=== PATIENT | female | born 1985 | race American Indian/Alaskan Native ===

== ENCOUNTER 2017-01-19 17:35 | Emergency (ER) | payer OTHER ==
[2017-01-19 17:42] VITALS: BP 127/75; PULSE 114; TEMP 98.9; O2SAT 100; BMI 26.4
[2017-01-19 17:45] VITALS: RESP 16
--- NOTE | 2017-01-19 18:27 | ED PDOC ---
HPI: CCC, URI, Sore Throat Time Seen by Provider: 01/19/17 17:46 Chief Complaint (Nursing): Cough, Cold, Congestion Chief Complaint (Provider): Cough History Per: Patient Additional Complaint(s): 31 yo female, PMH of asthma, presents to ED with complaints of nasal congestion , cough and tactile fever, worse at night x 2 days now. Past Medical History Reviewed: Nursing Documentation, Vital Signs Vital Signs: Last Vital Signs Temp 98.9 F 01/19/17 17:41 Pulse 114 H 01/19/17 17:41 Resp 16 01/19/17 17:41 BP 127/75 01/19/17 17:41 Pulse Ox 100 01/19/17 17:41 - Medical History PMH: No Chronic Diseases - Surgical History Surgical History: No Surg Hx - Family History Family History: States: Unknown Family Hx - Social History Current smoker - smoking cessation education provided: No Alcohol: None Drugs: Denies - Home Medications Home Medications: Ambulatory Orders Medication Instructions Recorded Ibuprofen [Motrin] 400 mg PO Q6 #30 tab 04/18/16 Azithromycin [Zithromax] 500 mg PO DAILY #6 tab 01/19/17 Methylprednisolone [Medrol Dose 4 mg PO DAILY #21 mg 01/19/17 Pack (21 tabs)] Promethazine HCl/Codeine 5 ml PO HS #80 ml 01/19/17 [Prometh-Codein 6.25-10 mg/5 ml] - Allergies Allergies/Adverse Reactions: Allergies Allergy/AdvReac Type Severity Reaction Status Date / Time No Known Allergies Allergy Verified 01/19/17 17:41 Review of Systems ROS Statement: Except As Marked, All Systems Reviewed And Found Negative Constitutional: Positive for: Fever Respiratory: Positive for: Cough Physical Exam - Reviewed Nursing Documentation Reviewed: Yes Vital Signs Reviewed: Yes - Physical Exam Appears: Positive for: Well, Non-toxic, No Acute Distress Head Exam: Positive for: ATRAUMATIC, NORMAL INSPECTION, NORMOCEPHALIC Skin: Positive for: Normal Color, Warm, DRY Eye Exam: Positive for: EOMI, Normal appearance, PERRL ENT: Positive for: Normal ENT Inspection Neck: Positive for: Normal, Painless ROM Cardiovascular/Chest: Positive for: Regular Rate, Rhythm Respiratory: Positive for: CNT, Normal Breath Sounds Gastrointestinal/Abdominal: Positive for: Normal Exam, Bowel Sounds, Soft Back: Positive for: Normal Inspection Extremity: Positive for: Normal ROM Neurologic/Psych: Positive for: Alert, Oriented - ECG O2 Sat by Pulse Oximetry: 100 Medical Decision Making Medical Decision Making: Supportive care measures discussed at length. Disposition - Clinical Impression Clinical Impression: Upper respiratory infection - Patient ED Disposition Is Patient to be Admitted: No - Disposition Disposition: Routine/Home Disposition Time: 18:26 Condition: STABLE Prescriptions: Azithromycin [Zithromax] 500 mg PO DAILY #6 tab Methylprednisolone [Medrol Dose Pack (21 tabs)] 4 mg PO DAILY #21 mg Promethazine HCl/Codeine [Prometh-Codein 6.25-10 mg/5 ml] 5 ml PO HS #80 ml Instructions: Upper Respiratory Infection (ED) Forms: [facility] ED School/Work Excuse
== END 2017-01-19 18:35 | disposition home or self-care (01) ==
LOC: H.ER 17:35
DX: J06.9 Acute upper respiratory infection, unspecified (principal)

== ENCOUNTER 2017-12-10 08:47 | Inpatient (IN) | payer OTHER ==
[2017-12-10 09:39] VITALS: BMI 31.2
[2017-12-10] MEDS ORDERED: AMPicillin 2 GM in Sodium Chloride 0.9% 100 ML IVPB STA (09:40)
[2017-12-10] MEDS ORDERED: Betamethasone Soluspan 30 mg/5mL Inj Susp IM ONE (09:43)
[2017-12-10] MEDS: Lactated Ringer's 1,000 ML IV SCH ×2 (09:50→10:50)
[2017-12-10 10:32] LABS: BASO # 0.1 K/uL (0.0-0.2); BASO % 0.6 % (0.0-2.0); EOS # 0.1 K/uL (0.0-0.7); HEMOGLOBIN 12.3 g/dL (12.0-16.0); LYMPH # 1.1 K/uL (1.0-4.3); LYMPH % 13.9 % (20.0-40.0); MEAN CELL VOLUME 84.3 fl (81.0-99.0); MEAN CORPUSCULAR HEMOGLOBIN 28.7 pg (27.0-31.0); MEAN CORPUSCULAR HGB CONC 34.1 g/dL (33.0-37.0); MEAN PLATELET VOLUME 8.1 fl (7.2-11.7); MONO # 0.5 K/uL (0.0-0.8); NEUT # 6.4 K/uL (1.8-7.0); NEUT % 78.5 % (50.0-75.0); RBC 4.27 Mil/uL (3.80-5.20); RED CELL DISTRIBUTION WIDTH 15.3 % (11.5-14.5); WHITE BLOOD COUNT 8.2 K/uL (4.8-10.8)
[2017-12-10] MEDS ORDERED: Oxytocin 30 units/LR 500ML 30 UNITS/500 ML BAG IV ONE ×2 (10:42→19:15)
[2017-12-10] MEDS ORDERED: Fentanyl/Bupivacaine HCl 250 ML EPI ONE (11:10)
[2017-12-10] MEDS ORDERED: Bupivacaine HCl 0.25% PF (10 ml) Inj ONE (11:10)
[2017-12-10] MEDS ORDERED: Lidocaine 2% PF (10 ml) Amp ONE (11:59)
[2017-12-10] MEDS ORDERED: Lactated Ringer's 1,000 ML IV SCH (12:00)
[2017-12-10] MEDS ORDERED: Oxytocin 30 units/LR 500ML 30 U/500 ML BAG IV ONE (13:24)
[2017-12-10] MEDS: AMPicillin 1 GM in Sodium Chloride 0.9% 100 ML IVPB SCH ×2 (13:38→18:00)
--- NOTE | 2017-12-10 16:28 | OBADHP ---
Datetime: 12/10/2017 11:23 Admit Comment, IP Provider: 32-year-old 011 at 35 weeks gestational age presents to OB ED comp laining of contractions. Patient denies any vaginal bleeding or leakage. Patient reports good m ovement. records reviewed. course significant for bilateral double collecting system. +1 hour GTT, 3 hour GTT not completed. Unknown GBS status. Past medical history denies Past surgical history denies Medications vitamins No known drug allergies Obstetrical history full-term 1 Social history denies tobacco, drugs, alcohol Assessment: 0-1 at 35 weeks gestational age in labor. Unknown GBS status. Reassuring heart tracing. Plan: Admit for management of labor IV ampicillin for GBS prophylaxis Administration first dose of betamethasone Consult pediatrics Discussed plan with patient and all questions answered. Pelvic Type - PN: Adequate Extremities - PN: Normal Abdomen - PN: Normal Back - PN: Normal Breast - PN: Normal Lungs - PN: Normal Heart - PN: Normal Thyroid - PN: Normal Neurologic - PN: Normal HEENT - PN: Normal General - PN: Normal FHR - Baseline A Provider: 140s Membranes, Provider: Intact Contraction Comments Provider: q2-3min Vital Signs Provider: Reviewed; Within Normal Limits IP Chief Complaint: Uterine contractions NICHD Variability Prov Fetus A: Moderate 6-25bpm NICHD Accel Fetus A IP Provider: [id number] FHR Category Provider Fetus A: Category I NICHD Decel Fetus A IP Provider: None Dilatation, Provider: 5-6 Effacement, Provider: 100 Station, Provider: 0 Genitourinary Exam: Normal DTRs - PN: Normal EGA AdmitDate IP: 35.0 IP Adm Impression: , intrauterine ; Active labor IP Admit Plan: Admit to unit; Initiate labor protocol
--- NOTE | 2017-12-10 20:10 | OBDS ---
MATERNAL INFORMATION Estimated Blood Loss (ml): 250ml Maternal Complications: None LABOR SUMMARY EDC: 01/14/2018 00:00 No. Babies in Womb: 1 LABOR INFORMATION Onset of Labor: 12/10/2017 05:00 Steroids Given: Partial Course MEMBRANES Membranes Rupture Method: Artificial Amniotic Fluid Color: Clear Amniotic Fluid Amount: Small VAGINAL DELIVERY Episiotomy: None Laceration Extension: N/A Laceration Type: None Laceration Repair Note: none Count Comment: cqrrect
[2017-12-10] MEDS ORDERED: Oxycodone/Acetaminophen 5/325 mg Tab PO PRN ×4 (20:25→22:54)
[2017-12-11 06:32] LABS: BASO # 0.1 K/uL (0.0-0.2); BASO % 0.5 % (0.0-2.0); HEMOGLOBIN 8.9 g/dL (12.0-16.0); LYMPH # 1.2 K/uL (1.0-4.3); LYMPH % 10.7 % (20.0-40.0); MEAN CELL VOLUME 86.2 fl (81.0-99.0); MEAN CORPUSCULAR HEMOGLOBIN 28.3 pg (27.0-31.0); MEAN CORPUSCULAR HGB CONC 32.8 g/dL (33.0-37.0); MEAN PLATELET VOLUME 7.5 fl (7.2-11.7); MONO % 9.1 % (0.0-10.0); NEUT # 8.9 K/uL (1.8-7.0); NEUT % 79.7 % (50.0-75.0); RBC 3.14 Mil/uL (3.80-5.20); RED CELL DISTRIBUTION WIDTH 15.5 % (11.5-14.5); WHITE BLOOD COUNT 11.1 K/uL (4.8-10.8)
--- NOTE | 2017-12-12 12:55 | OBPPN ---
Datetime: 12/12/2017 12:52 PP Pain Prov: Within normal limits PP Nausea Prov: Denies PP Flatus Prov: Yes PP BM Prov: Yes PP Breasts Prov: Normal PP Heart Prov: Normal PP Lungs Prov: Normal PP Abdomen/Uterus Prov: Normal PP Lochia Prov: Normal PP Vulva/Perineum Prov: Normal PP CVA Tenderness Prov: Normal PP Extremities Prov: Normal PP Progress Prov: Normal PP Impression Prov: Normal progression PP Plan Prov: Continue present management PP Progress Note Prov: stable ppd2 continue present care IP PP Procedures: None Vital Signs Provider PP: Reviewed; Within Normal Limits
--- NOTE | 2017-12-12 13:01 | OBDCSUM ---
Datetime: 12/12/2017 12:55 Discharged to, Provider: Home Follow up at, Provider: Disch Instr Activity: Bedrest; May be up to bathroom; May be up for meals; May Shower Disch Instr Diet: Regular Discharge Instructions, Provider: Routine instructions given Discharge Diagnosis, Provider: Labor Discharge Time: 12/12/2017 12:55 Follow up in weeks, Provider: 5-6 weeks Disch Referrals: None Disch Activity Restrictions: No exercising; No lifting; No driving; Minimize walking; Minimize stair -climbing; No sexual activity; Nothing in vagina - Webb, tampons, douche Discharge Comment, Provider: dc home today rto 5-6weeks call office if any problems Contraception after Delivery: Undecided
[2017-12-13 02:32] VITALS: BP 112/71; PULSE 97; RESP 20; TEMP 98; O2SAT 100
== END 2017-12-12 19:03 | disposition home or self-care (01) | DRG 379 ==
LOC: H.EROB2 08:47 → H.EROB 09:41 → H.L&D 20:58 → H.OB/GYN 21:42 → UNDODISIN 12-12 15:45
PROVIDERS: ADMIT Specialist; ATTEND Specialist
PROC: 10E0XZZ Delivery of Products of Conception, External Approach (ICD-10-PCS; principal; 2017-12-10)
PROC: 4A1HXCZ Monitoring of Products of Conception, Cardiac Rate, External Approach (ICD-10-PCS; 2017-12-10)
DX: O60.03 Preterm labor without delivery, third trimester (principal); Z3A.35 35 weeks gestation of pregnancy; Z37.0 Single live birth